=== PATIENT | female | born 1995 | race Native Hawaiian/Other Pacific Islander ===

== ENCOUNTER 2019-04-04 08:59 | Outpatient (CLI) | payer OTHER ==
[~2019-04-04 08:59] MED LIST: BACTRIM1 TAB PO
== END 2019-04-04 19:29 | disposition home or self-care (01) ==
LOC: LABW 08:59
DX: R19.7 Diarrhea, unspecified (principal)
CPT/HCPCS: 82272; 83630; 87015; 87045; 87324; 87328; 87329; 87449; 87899